=== PATIENT | male | born 1955 | race Caucasian/White ===

== ENCOUNTER 2016-11-30 | Emergency (ER) | payer BC ==
[~2016-11-30] VITALS: Ht 177.8 cm; Wt 102.1 kg
[2016-11-30 00:29] VITALS: BP 155/94
--- NOTE | 2016-11-30 00:47 | PHYS DOC ---
Past Medical History Past Medical History: Hypertension, Other Additional Past Medical Histor: HepC Past Surgical History: Other Additional Past Surgical Histo: hernia Alcohol Use: Sober Drug Use: None Adult General Chief Complaint Chief Complaint: WRIST PAIN HPI HPI Patient is a 61 year old male that presents to the ED with c/o chronic right wrist pain. He states that he had an initial injury in 2009 and has occasional episodes of pain. He states this exacerbation began 3 days ago. Has been utilizing ibuprofen and Tylenol as well as his splint without relief pain. Review of Systems Review of Systems Constitutional: Denies fever or chills [] Eyes: Denies change in visual acuity, redness, or eye pain [] HENT: Denies nasal congestion or sore throat [] Respiratory: Denies cough or shortness of breath [] Cardiovascular: No additional information not addressed in HPI [] GI: Denies abdominal pain, nausea, vomiting, bloody stools or diarrhea [] : Denies dysuria or hematuria [] Musculoskeletal: acute exacerbation chronic right wrist pain [] Integument: Denies rash or skin lesions [] Neurologic: Denies headache, focal weakness or sensory changes [] Endocrine: Denies polyuria or polydipsia [] Current Medications Current Medications Current Medications Medications (Trade) Dose Ordered Sig/Andrea Start Time Stop Time Status Last Admin Dose Admin Acetaminophen/ Codeine Phosphate (Tylenol #3) 2 tab 1X ONCE 11/30/16 01:00 11/30/16 01:01 Allergies Allergies Allergies Coded Allergies Type Severity Reaction Last Updated Verified No Known Drug Allergies 11/30/16 No Physical Exam Physical Exam Constitutional: Well developed, well nourished, no acute distress, non-toxic appearance. [] HENT: Normocephalic, atraumatic, bilateral external ears normal, oropharynx moist, no oral exudates, nose normal. [] Eyes: PERRLA, EOMI, conjunctiva normal, no discharge. [] Neck: Normal range of motion, no tenderness, supple, no stridor. [] Cardiovascular:Heart rate regular rhythm, no murmur [] Lungs & Thorax: Bilateral breath sounds clear to auscultation [] Abdomen: Bowel sounds normal, soft, no tenderness, no masses, no pulsatile masses. [] Skin: Warm, dry, no erythema, no rash. [] Back: No tenderness, no CVA tenderness. [] Extremities: Right wrist exam without acute swelling, ecchymosis or erythema. He has no bony tenderness to palpation on exam. He does complain of pain with range of motion. Neurovascular intact [] Neurologic: Alert and oriented X 3, normal motor function, normal sensory function, no focal deficits noted. [] Psychologic: Affect normal, judgement normal, mood normal. [] Current Patient Data Vital Signs Vital Signs Date Time Temp Pulse Resp B/P (MAP) Pulse Ox O2 Delivery O2 Flow Rate FiO2 11/30/16 00:29 98.3 87 18 95 Room Air 98.3 EKG EKG [] Radiology/Procedures Radiology/Procedures [] Course & Med Decision Making Course & Med Decision Making I discussed with the patient the use of narcotic pain medicines and chronic pain. I advised him that these medications need to be administered through primary care or pain management. Patient was given Tylenol No. 3 2 tablets in the emergency department with plan to follow-up primary care fighter tomorrow for further evaluation and treatment of his chronic pain. Pertinent Labs and Imaging studies reviewed. (See chart for details) [] Dragon Disclaimer Dragon Disclaimer This electronic medical record was generated, in whole or in part, using a voice recognition dictation system. Departure Departure Impression: Primary Impression: Wrist pain, chronic Disposition: 01 HOME, SELF-CARE Condition: STABLE Referrals: JAMIE ORTIZ MD (PCP) Patient Instructions: Chronic Pain Additional Instructions: Follow-up with your primary care provider in the morning for further pain management at his discretion. CHRISTOPHE TORRES APRN November 30, 2016 00:47
[2016-11-30] MEDS ORDERED: ACETAMINOPHEN/CODEINE 300/30MG TABLET. PO ONE (01:00)
== END 2016-11-30 01:09 | disposition home or self-care (01) ==
LOC: ER
DX: G89.29 Other chronic pain (principal); M25.531 Pain in right wrist; I10 Essential (primary) hypertension
CPT/HCPCS: 99282

== ENCOUNTER 2020-09-17 07:54 | Emergency (ER) | payer BC, MEDICARE ==
[~2020-09-17] VITALS: Ht 177.8 cm; Wt 104.2 kg
[2020-09-17 07:59] VITALS: BP 148/79
--- NOTE | 2020-09-17 08:04 | ED.ADGEN ---
Past Medical History Past Medical History: Hypertension, Other Additional Past Medical Histor: HepC Past Surgical History: Other Additional Past Surgical Histo: hernia Smoking Status: Former Smoker Alcohol Use: Sober Drug Use: None General Adult EDM: Chief Complaint: LACERATION/AVULSION HPI: HPI: Patient is a 65 year old male who arrives ambulatory to the emergency department after sustaining a laceration to his left hand. Patient was using a razor blade to remove a sticker from his vehicle and accidentally cut an area in the region of the thenar eminence of his left hand. The patient is right-hand dominant and states he has full range of motion. He further denies any foreign body sensation and states his pain is well controlled. He denies injury otherwise. He is awake, alert and nontoxic-appearing Review of Systems: Review of Systems: Constitutional: Denies fever or chills. [] Eyes: Denies change in visual acuity. [] HENT: Denies nasal congestion or sore throat. [] Respiratory: Denies cough or shortness of breath. [] Cardiovascular: Denies chest pain or edema. [] GI: Denies abdominal pain, nausea, vomiting, bloody stools or diarrhea. [] : Denies dysuria. [] Musculoskeletal: Denies back pain or joint pain. [] Integument: Reports laceration. Denies rash. [] Neurologic: Denies headache, focal weakness or sensory changes. [] Endocrine: Denies polyuria or polydipsia. [] Lymphatic: Denies swollen glands. [] Psychiatric: Denies depression or anxiety. [] Family History: Family History: Noncontributory Current Medications: Current Medications Medications (Trade) Dose Ordered Sig/Andrea Start Time Stop Time Status Last Admin Dose Admin Diphtheria/ Tetanus/Acell Pertussis (ADACEL TDap SYRINGE) 0.5 ml ONCE ONCE 09/17/20 08:15 09/17/20 08:18 DC 09/17/20 09:01 0.5 ML Lidocaine HCl (Lidocaine 1% 20ml Vial) 20 ml 1X ONCE 09/17/20 08:15 09/17/20 08:16 DC 09/17/20 08:13 20 ML Tetanus Immune Globulin (Hypertet) 1 ml ONCE ONCE 09/17/20 08:15 09/17/20 08:16 DC Allergies: Allergies: Allergies Coded Allergies Type Severity Reaction Last Updated Verified No Known Drug Allergies 09/17/20 No Physical Exam: PE: Constitutional: Well developed, well nourished, no acute distress, non-toxic appearance. [] HENT: Normocephalic, atraumatic, bilateral external ears normal, oropharynx moist, no oral exudates, nose normal. [] Eyes: PERRLA, EOMI, conjunctiva normal, no discharge. [] Neck: Normal range of motion, no tenderness, supple, no stridor. [] Cardiovascular:Heart rate regular rhythm, no murmur [] Lungs & Thorax: Bilateral breath sounds clear to auscultation [] Abdomen: Bowel sounds normal, soft, no tenderness, no masses, no pulsatile masses. [] Skin: Patient has a laceration of the left palm in the region of the thenar eminence. There is active bleeding which is nonpulsatile in nature. Warm, dry, no erythema, no rash. [] Back: No tenderness, no CVA tenderness. [] Extremities: Patient has a laceration to the left hand in the region of the thenar eminence. No tenderness, no cyanosis, no clubbing, ROM intact, no edema. [] Neurologic: Alert and oriented X 3, normal motor function, normal sensory function, no focal deficits noted. [] Psychologic: Affect normal, judgement normal, mood normal. [] Current Patient Data: Vital Signs: Vital Signs Date Time Temp Pulse Resp B/P (MAP) Pulse Ox O2 Delivery O2 Flow Rate FiO2 09/17/20 07:59 98.9 112 20 148/79 (102) 95 Room Air 98.9 EKG: EKG: [] Heart Score: Risk Factors: Risk Factors: DM, Current or recent (<one month) smoker, HTN, HLP, family history of CAD, obesity. Risk Scores: Score 0 - 3: 2.5% MACE over next 6 weeks - Discharge Home Score 4 - 6: 20.3% MACE over next 6 weeks - Admit for Clinical Observation Score 7 - 10: 72.7% MACE over next 6 weeks - Early Invasive Strategies Radiology/Procedures: Radiology/Procedures: Patient has a 4 cm laceration at the lateral aspect of his left hand in the region of the thenar eminence. This wound was carefully inspected as well as irrigated with water copiously. Following inspection and irrigation, the patient was anesthetized with 5 mL of lidocaine. Betadine was then used to prep the wound for wound closure. Using 4-0 nylon, 3 mattress sutures were placed and one simple suture was placed. The patient tolerated the procedure well and nursing has since cleaned and wrapped the wound. [] Course & Med Decision Making: Course & Med Decision Making Pertinent Labs and Imaging studies reviewed. (See chart for details) [] Dragon Disclaimer: Dragon Disclaimer: This electronic medical record was generated, in whole or in part, using a voice recognition dictation system. Departure Departure Impression: Primary Impression: Laceration of hand Disposition: 01 DC HOME SELF CARE/HOMELESS Condition: IMPROVED Referrals: JAMIE ORTIZ MD (PCP) Patient Instructions: Laceration Care, Adult Additional Instructions: Contact primary care physician for suture removal in the next 10 to 14 days. APOLINAR OSHEA DO Sep 17, 2020 08:04
[2020-09-17] MEDS ORDERED: TETANUS IMMUNE GLOBULIN PF 250 UNIT DISP.SYRIN. VAX IM ONE (08:15)
[2020-09-17] MEDS ORDERED: LIDOCAINE 1% Multi-Dose 20 ML VIAL. INJ ONE (08:15)
[2020-09-17] MEDS ORDERED: DIPH,PERTUSS(ACELL),TET VAC/PF 0.5 ML SYRINGE. VAX IM ONE (08:15)
== END 2020-09-17 09:31 | disposition home or self-care (01) ==
LOC: ER 07:54
DX: S61.412A Laceration without foreign body of left hand, initial encounter (principal); I10 Essential (primary) hypertension; Z87.891 Personal history of nicotine dependence; W27.8XXA Contact with other nonpowered hand tool, initial encounter; Y93.89 Activity, other specified; Y92.89 Other specified places as the place of occurrence of the external cause; Y99.8 Other external cause status
CPT/HCPCS: 12002; 90471; 90715; 99283; J3490

== ENCOUNTER → 2020-10-29 | Outpatient (CLI) | payer MEDICARE ==
[~2020-10-29] MED LIST: ACET1TAB33 PO; CIPR500T94 PO; FINA5TAB4 PO; LATA7.5D OU; LISI1TAB37 PO; METR500T PO; SERT100T PO; TAMS0.4C97 PO
[2020-10-29] MEDS: IOHEXOL 240 MG/ML 50ML VIAL. PO ONE (14:17)
[2020-10-29] MEDS: IOHEXOL 300 MG/ML 100ML VIAL. IV ONE (14:17)
--- NOTE | 2020-10-30 09:05 | KCIC ---
CT ABDOMEN+PELVIS W History: LLQ pain, evaluate for diverticulitis, nausea. Constipation, difficulty urinating, Hx. Hep C Comparison: None. Technique: After administration of intravenous contrast, helical CT of the abdomen and pelvis was per formed from the lung bases through the ischial tuberosities. Coronal and sagittal reconstructions wer e obtained. 100 mL of Omnipaque 300 were used. One or more of the following dose reduction techniques were utilized: Automated exposure control (AEC), Adjustment of mA and/or kV according to patient siz e, Use of iterative reconstruction technique such as ASiR, CT scan done according to ALARA and image gently/image wisely Abdomen Findings: The visualized lung bases are clear. Subcentimeter right hepatic hypodensity is too small to characterize but probably a cyst. The gallbla dder, pancreas, and bilateral adrenal glands are normal. Calcified splenic granulomas per Symmetric renal enhancement. There is no focal renal mass. There is no hydronephrosis. The visualized loops of small bowel are normal. The visualized loops of large bowel are normal. Mild colonic diverticulosis. There is no evidence of bowel obstruction. Appendix is normal. There is no free fluid. There is no mesenteric or retroperitoneal adenopathy. The abdominal aorta is normal in caliber. Mild aortoiliac atherosclerotic disease. Pelvis Findings: Urinary bladder is decompressed. No pelvic free fluid. There is no pelvic or inguinal adenopathy. Degenerative changes of the spine. IMPRESSION: Mild colonic diverticulosis. No evidence of acute diverticulitis. Electronically signed by: Eris Jeffries MD (10/30/2020 9:02 AM) [id number]
== END ==
LOC: KCIC CT 12:39
PROVIDERS: ATTEND Family Medicine
DX: K57.30 Diverticulosis of large intestine without perforation or abscess without bleeding (principal); K57.92 Diverticulitis of intestine, part unspecified, without perforation or abscess without bleeding
CPT/HCPCS: 74177; Q9966; Q9967

== ENCOUNTER → 2020-11-26 | Outpatient (CLI) | payer MEDICARE ==
--- NOTE | 2020-11-26 14:06 | KCIC ---
AP view of the abdomen Clinical indications: Abdominal pain worse at night. Nausea and vomiting. Weight loss. Diverticulosis . FINDINGS: There is a new finding of diffuse subcutaneous emphysema of the pelvis. No obstructive jose l pattern is seen. Calcified splenic granulomas are seen. Nonhealed old and healed old lower right ri b cage fractures are evident. IMPRESSION: New finding of subcutaneous emphysema of both sides of the pelvis. Origin of the air is u ncertain. Recommend abdomen and pelvis CT with IV contrast for further evaluation. FOR INTERNAL CODING PURPOSES Critical result: Findings discussed with Ping Camacho, nurse in the office of the patient's physician at 11/26/2020 2:0 2 PM. RESULT CODE: (C) Electronically signed by: Rashad Forbes MD (11/26/2020 2:04 PM) [id number]
== END ==
LOC: KCIC 12:38
PROVIDERS: ATTEND Family Medicine
DX: K57.30 Diverticulosis of large intestine without perforation or abscess without bleeding (principal); R11.0 Nausea
CPT/HCPCS: 74018

== ENCOUNTER → 2020-11-27 | Outpatient (CLI) | payer MEDICARE ==
[~2020-11-27] MED LIST changes: +IOHEXOL 240 MG/ML 50ML VIAL. PO ONE; +IOHEXOL 300 MG/ML 100ML VIAL. IV ONE
--- NOTE | 2020-11-27 10:13 | KCIC ---
CT scan of the abdomen and pelvis with contrast 11/27/2020 CLINICAL HISTORY: Lower abdominal pain. Possible subcutaneous emphysema seen on AP abdomen radiograp h obtained yesterday. TECHNIQUE: After the oral administration contrast and the intravenous administration of 100 cc of Omn ipaque 300, contiguous, 5 mm axial sections were obtained through the abdomen and pelvis. One or more of the following individualized dose reduction techniques were utilized for this study: 1. Automated exposure control. 2. Adjustment of the mA and/or kV according to patient size. 3. Use of iterative reconstruction technique. FINDINGS: Comparison is made to the patient's CT scan of the abdomen and pelvis dated 10/29/2020. Enoch tional comparison is made to the patient's AP abdomen radiographs dated 11/26/2020. Images through the lung bases demonstrate old healed right-sided rib fractures. The liver, spleen, pancreas, adrenal glands and kidneys are within normal limits. Atherosclerotic calcification of the abdominal aorta is seen. The abdominal aorta tapers normally. No free fluid or free air is seen within the abdomen. The gallbladder is well-distended. There is no ev idence of bowel obstruction. The appendix is partially visualized and is within normal limits. No inf lammatory changes are seen surrounding the colon. The subcutaneous emphysema seen within the pelvis on the patient's radiograph from yesterday is artif actual. No subcutaneous emphysema is seen within the abdomen and pelvis on the CT study. Images through the pelvis demonstrate the urinary bladder to be contracted. No free fluid is seen. Sc attered diverticula are seen involving the sigmoid colon. No inflammatory changes are seen in the adj acent fat. The osseous structures are unchanged. IMPRESSION: No acute abnormality is seen. Electronically signed by: Malachi Kiran MD (11/27/2020 10:11 AM) [id number]
== END ==
LOC: KCIC CT 08:16
PROVIDERS: ATTEND Family Medicine
DX: K57.92 Diverticulitis of intestine, part unspecified, without perforation or abscess without bleeding (principal); R10.30 Lower abdominal pain, unspecified
CPT/HCPCS: 74177; Q9966; Q9967